=== PATIENT | male | born 1985 | race Caucasian/White ===

== ENCOUNTER 2021-11-30 20:45 | Emergency (ER) | payer BC, SELFPAY ==
[2021-11-30 20:58] VITALS: BP 146/89; PULSE 95; RESP 18; TEMP 36.6; O2SAT 100; BMI 31.9
--- NOTE | 2021-11-30 22:19 | CRLHL7_ITS ---
For Patients: As a result of the Century Cures Act, medical imaging exams and procedure reports are released immediately into your electronic medical record. You may view this report before your referring provider. If you have questions, please contact your health care provider. INDICATION: Chest pain TECHNIQUE: Chest radiograph 1 view COMPARISON: None FINDINGS: The sensitivity and specificity of the exam are moderately limited by the patient`s body habitus. Mediastinum: The mediastinum is normal in appearance. The heart silhouette is normal in size and morphology. Lung: Both lungs are unremarkable in appearance with small lung volumes. No sign of pleural effusion seen. No pneumothorax is identified. Bone and Soft tissue: Unremarkable for age. IMPRESSION: 1. No acute cardiopulmonary disease is seen. Dictated by: Ramy Celis MD @ 11/30/2021 23:06:02 (Electronically Signed)
[2021-11-30 22:44] LABS: Chloride* 103 mmol/L (96-114)
[2021-11-30 22:45] LABS: Albumin* 4.3 g/dL (3.3-5.0); Potassium* 3.7 mmol/L (3.6-5.1); Sodium* 134 mmol/L (135-149)
[2021-11-30 22:46] LABS: Appearance Urine Clear (Clear); Bilirubin Urine Negative (Negative); Blood Urine Trace-intact (Negative); Color Urine Yellow (Yellow); Glucose Urine Negative (Negative); Ketones Urine Negative (Negative); Leukocyte Esterase Urine Negative (Negative); Nitrite Urine Negative (Negative); Protein Urine Trace (Negative)
[2021-11-30 22:47] LABS: Bilirubin Total* 0.7 mg/dL (0.1-1.5); Creatinine* 0.9 mg/dL (0.5-1.5); Est. Creatinine Clearance* 109.78; Estimated Glomerular Filt Rate 114 ml/min
[2021-11-30 22:48] LABS: Alanine Aminotransferase* 41 U/L (4-50); Alkaline Phosphatase* 101 U/L (40-150); Aspartate Amino Transferase* 42 U/L (12-35); Blood Urea Nitrogen* 17 mg/dL (5-24); Calcium* 8.8 mg/dL (8.4-10.6); Carbon Dioxide* 23 mmol/L (20-32); Glucose* 117 mg/dL (60-115); Total Protein* 7.6 g/dL (6.0-8.3)
[2021-11-30] MEDS: ASPIRIN 81 MG TAB.CHEW 324 MG PO (22:49)
[2021-11-30 22:50] LABS: D Dimer Quantitative* < 0.27 ug/ml (0.00-0.50)
[2021-11-30] MEDS: 0.9 % SODIUM CHLORIDE 1000 ml 1,000 ML IV (22:50)
[2021-11-30 22:54] LABS: Bacteria Urine Few; Mucus Urine Moderate; RBC Urine 0-2 (0-2); Squamous Epithelial Cell Urine Few (None-Few); WBC Urine 0-2 (0-5)
[2021-11-30 22:57] LABS: Basophils Absolute Auto 0.03 K/uL (0.00-0.30); Basophils Percent Auto 0.4 % (0.0-3.0); Eosinophils Absolute Auto 0.24 K/uL (0.00-0.50); Eosinophils Percent Auto 3.1 % (0.0-7.0); Hematocrit 42.2 % (37.0-53.0); Hemoglobin* 14.8 gm/dL (13.5-17.5); Immature Granulocytes Abs Auto 0.05 K/uL (0.00-0.30); Lymphocytes Absolute Auto 2.22 K/uL (0.90-2.90); Lymphocytes Percent Auto 29.1 % (20-44); Mean Corpuscular HGB Conc 35 gm/dL (32-36); Mean Corpuscular Hemoglobin 32 pg (26-34); Mean Corpuscular Volume 90 fL (80-100); Monocytes Percent Auto 8.5 % (0.0-11.0); Neutrophils Absolute Auto 4.45 K/uL (1.7-7.0); Neutrophils Percent Auto 58.2 % (42.0-72.0); Platelet Count* 209 K/uL (140-440); RDW Coefficient of Variation % 12.4 % (11.5-15.5); Red Blood Count 4.69 m/uL (4.30-5.90); White Blood Count* 7.64 K/uL (4.50-11.00)
[2021-11-30 22:58] LABS: Slide Review Reflex No
[2021-11-30 23:03] LABS: Troponin I* < 0.01 ng/mL (0.01-0.04)
[2021-11-30 23:30] VITALS: BP 136/78; PULSE 89; RESP 18; TEMP 36.6; O2SAT 100
--- NOTE | 2021-11-30 23:50 | ED_ITS ---
HPI - Chest Pain General Date Seen: 11/30/21 Chief Complaint: Chest Pain Stated Complaint: Chest pain Time Seen by Provider: 11/30/21 22:09 History of Present Illness HPI narrative: Tal is a very pleasant 36-year-old gentleman otherwise healthy who comes to the emergency room for evaluation of chest pain. Patient notes that this past weekend he awoke at 0300 hours covered in sweat with a heart rate of 145. He was not able to get back to sleep for quite some time. When he got up that morning he was still sweating and had a heart rate of 129. Really had no chest pain at that time and was not short of breath. This lasted for hours and then went away. He was seen at urgent care at which time he was told his EKG was normal. He was told to follow-up. Tonight he noted onset of rapid heart rate again but this time it was associated with chest pain he shows this to be substernal area and radiated into his back. He went to urgent care he was told it was possibly anxiety. He notes that since his arrival here he has had no rapid heart rate any feels well. Notes that he does have a stressful job but has not had problems with panic attacks in the past. He notes that there is really no skipped beats just too many beats. He does agree it was harder to breathe he has not had cough cold congestion Related Data Home Medications Medication Instructions Recorded Confirmed No Known Home Medications 11/30/21 11/30/21 Allergies Allergy/AdvReac Type Severity Reaction Status Date / Time No Known Drug Allergies Allergy Verified 11/30/21 21:01 Review of Systems Status of ROS Reports: 10 or more systems reviewed and unremarkable except as noted in History and below Narrative Patient denies fever, chills. He does snore. He has not had a sleep study. He does not use a CPAP. Denies cough. Denies nausea vomiting abdominal pain. Denies numbness around his mouth but does note occasional tingling in his hands and feet. [facility] Medical History (Updated 12/01/21 @ 00:51 by Fouzia Franklin MD) No significant past medical history Surgical History (Updated 11/30/21 @ 22:10 by Ephraim Telles RN) No significant past surgical history Social History Smoking Status: Never smoker Do you use any of these nicotine containing products: None How often do you have a drink containing alcohol: never How often do you have six or more drinks on one occasion: Never AUDIT-C Alcohol total score: 0 Non-prescribed substance use: denies use Exam Const Vital Signs, click to edit/add: Vital Signs - 24 hr 11/30/21 20:58 11/30/21 23:30 12/01/21 00:10 Temperature 97.8 F 97.8 F 97.8 F Pulse Rate [Right Pulse Oximeter] 95 89 78 Respiratory Rate 18 18 18 Blood Pressure [Right Upper Arm] 146/89 H 136/78 125/70 Pulse Oximetry 100 100 100 Course Vital Signs Vital signs: Initial Vital Signs Temperature 97.8 F 11/30/21 20:58 Temperature Source Temporal Artery Scan 11/30/21 20:58 Pulse Rate 95 11/30/21 20:58 Respiratory Rate 18 11/30/21 20:58 Blood Pressure 146/89 H 11/30/21 20:58 Blood Pressure Mean 108 11/30/21 20:58 Blood Pressure Position Sitting 11/30/21 20:58 Pulse Oximetry 100 11/30/21 20:58 Oxygen Delivery Method 11/30/21 20:58 Vital Signs Temperature 97.8 F 11/30/21 20:58 Pulse Rate 95 11/30/21 20:58 Respiratory Rate 18 11/30/21 20:58 Blood Pressure 146/89 H 11/30/21 20:58 Pulse Oximetry 100 11/30/21 20:58 Temperature 97.8 F 12/01/21 00:10 Pulse Rate 78 12/01/21 00:10 Respiratory Rate 18 12/01/21 00:10 Blood Pressure 125/70 12/01/21 00:10 Pulse Oximetry 100 12/01/21 00:10 MDM - Chest Pain MDM Narrative Medical decision making narrative: 1. Atypical chest pain-at this time patient's laboratory values including a white count, hemoglobin, electrolyte panel, troponin are all reassuring. Two EKGs and 2 troponins reassuring. Patient may need outpatient Holter and or stress test. 2. Likely sleep apnea-establish with primary to be set up for sleep study 3. Disposition-home, return as needed for worsening symptoms. Lab Data Attestation: I reviewed the patient's lab results. Labs: Lab Results 07/26/22 07/26/22 07/26/22 Range/Units 22:30 22:30 22:30 WBC 7.64 (4.50-11.00) K/uL RBC 4.69 (4.30-5.90) m/uL Hgb 14.8 (13.5-17.5) gm/dL Hct 42.2 (37.0-53.0) % MCV 90 (80-100) fL MCH 32 (26-34) pg MCHC 35 (32-36) gm/dL RDW Coeff of Scottie 12.4 (11.5-15.5) % Plt Count 209 (140-440) K/uL Neut % (Auto) 58.2 (42.0-72.0) % Lymph % (Auto) 29.1 (20-44) % [place] % (Auto) 8.5 (0.0-11.0) % Eos % (Auto) 3.1 (0.0-7.0) % Baso % (Auto) 0.4 (0.0-3.0) % Neut # (Auto) 4.45 (1.7-7.0) K/uL Lymph # (Auto) 2.22 (0.90-2.90) K/uL [place] # (Auto) 0.60 (0.00-0.90) K/UL Eos # (Auto) 0.24 (0.00-0.50) K/uL Baso # (Auto) 0.03 (0.00-0.30) K/uL Abs Immat Gran (auto) 0.05 (0.00-0.30) K/uL D-Dimer Quant (PE/DVT) < 0.27 (0.00-0.50) ug/ml Sodium 134 L (135-149) mmol/L Potassium 3.7 (3.6-5.1) mmol/L Chloride 103 (96-114) mmol/L Carbon Dioxide 23 (20-32) mmol/L BUN 17 (5-24) mg/dL Creatinine 0.9 (0.5-1.5) mg/dL Estimated Creat Clear 109.78 Estimated GFR 114 ml/min Glucose 117 H (60-115) mg/dL Calcium 8.8 (8.4-10.6) mg/dL Total Bilirubin 0.7 (0.1-1.5) mg/dL AST 42 H (12-35) U/L ALT 41 (4-50) U/L Alkaline Phosphatase 101 (40-150) U/L Troponin I < 0.01 L (0.01-0.04) ng/mL Total Protein 7.6 (6.0-8.3) g/dL Albumin 4.3 (3.3-5.0) g/dL Urine Color (Yellow) Urine Appearance (Clear) Urine pH (5.0-8.5) Ur Specific [place] (1.000-1.030) Urine Protein (Negative) Urine Glucose (UA) (Negative) Urine Ketones (Negative) Urine Blood (Negative) Urine Nitrite (Negative) Urine Bilirubin (Negative) Urine Urobilinogen (0.2-1.0) Ur Leukocyte Esterase (Negative) Urine RBC (0-2) Urine WBC (0-5) Ur Squamous Epith Cells (None-Few) Urine Bacteria (None) Urine Mucus (None) POC Troponin I (0.01-0.04) ng/ml 11/30/21 11/30/21 12/01/21 Range/Units 22:30 22:40 00:25 WBC (4.50-11.00) K/uL RBC (4.30-5.90) m/uL Hgb (13.5-17.5) gm/dL Hct (37.0-53.0) % MCV (80-100) fL MCH (26-34) pg MCHC (32-36) gm/dL RDW Coeff of Scottie (11.5-15.5) % Plt Count (140-440) K/uL Neut % (Auto) (42.0-72.0) % Lymph % (Auto) (20-44) % [place] % (Auto) (0.0-11.0) % Eos % (Auto) (0.0-7.0) % Baso % (Auto) (0.0-3.0) % Neut # (Auto) (1.7-7.0) K/uL Lymph # (Auto) (0.90-2.90) K/uL [place] # (Auto) (0.00-0.90) K/UL Eos # (Auto) (0.00-0.50) K/uL Baso # (Auto) (0.00-0.30) K/uL Abs Immat Gran (auto) (0.00-0.30) K/uL D-Dimer Quant (PE/DVT) (0.00-0.50) ug/ml Sodium (135-149) mmol/L Potassium (3.6-5.1) mmol/L Chloride (96-114) mmol/L Carbon Dioxide (20-32) mmol/L BUN (5-24) mg/dL Creatinine (0.5-1.5) mg/dL Estimated Creat Clear Estimated GFR ml/min Glucose (60-115) mg/dL Calcium (8.4-10.6) mg/dL Total Bilirubin (0.1-1.5) mg/dL AST (12-35) U/L ALT (4-50) U/L Alkaline Phosphatase (40-150) U/L Troponin I < 0.01 L (0.01-0.04) ng/mL Total Protein (6.0-8.3) g/dL Albumin (3.3-5.0) g/dL Urine Color Yellow (Yellow) Urine Appearance Clear (Clear) Urine pH 7.0 (5.0-8.5) Ur Specific [place] 1.020 (1.000-1.030) Urine Protein Trace A (Negative) Urine Glucose (UA) Negative (Negative) Urine Ketones Negative (Negative) Urine Blood Trace-intact A (Negative) Urine Nitrite Negative (Negative) Urine Bilirubin Negative (Negative) Urine Urobilinogen 1.0 (0.2-1.0) Ur Leukocyte Esterase Negative (Negative) Urine RBC 0-2 (0-2) Urine WBC 0-2 (0-5) Ur Squamous Epith Cells Few (None-Few) Urine Bacteria Few A (None) Urine Mucus Moderate A (None) POC Troponin I 0.00 L (0.01-0.04) ng/ml 12/01/21 Range/Units 00:30 WBC (4.50-11.00) K/uL RBC (4.30-5.90) m/uL Hgb (13.5-17.5) gm/dL Hct (37.0-53.0) % MCV (80-100) fL MCH (26-34) pg MCHC (32-36) gm/dL RDW Coeff of Scottie (11.5-15.5) % Plt Count (140-440) K/uL Neut % (Auto) (42.0-72.0) % Lymph % (Auto) (20-44) % [place] % (Auto) (0.0-11.0) % Eos % (Auto) (0.0-7.0) % Baso % (Auto) (0.0-3.0) % Neut # (Auto) (1.7-7.0) K/uL Lymph # (Auto) (0.90-2.90) K/uL [place] # (Auto) (0.00-0.90) K/UL Eos # (Auto) (0.00-0.50) K/uL Baso # (Auto) (0.00-0.30) K/uL Abs Immat Gran (auto) (0.00-0.30) K/uL D-Dimer Quant (PE/DVT) (0.00-0.50) ug/ml Sodium (135-149) mmol/L Potassium (3.6-5.1) mmol/L Chloride (96-114) mmol/L Carbon Dioxide (20-32) mmol/L BUN (5-24) mg/dL Creatinine (0.5-1.5) mg/dL Estimated Creat Clear Estimated GFR ml/min Glucose (60-115) mg/dL Calcium (8.4-10.6) mg/dL Total Bilirubin (0.1-1.5) mg/dL AST (12-35) U/L ALT (4-50) U/L Alkaline Phosphatase (40-150) U/L Troponin I (0.01-0.04) ng/mL Total Protein (6.0-8.3) g/dL Albumin (3.3-5.0) g/dL Urine Color (Yellow) Urine Appearance (Clear) Urine pH (5.0-8.5) Ur Specific [place] (1.000-1.030) Urine Protein (Negative) Urine Glucose (UA) (Negative) Urine Ketones (Negative) Urine Blood (Negative) Urine Nitrite (Negative) Urine Bilirubin (Negative) Urine Urobilinogen (0.2-1.0) Ur Leukocyte Esterase (Negative) Urine RBC (0-2) Urine WBC (0-5) Ur Squamous Epith Cells (None-Few) Urine Bacteria (None) Urine Mucus (None) POC Troponin I 0.00 L (0.01-0.04) ng/ml Imaging Data Chest x-ray: Attestation: I have reviewed the pertinent imaging results. My impression: No acute findings Radiologist's impression: No acute findings ECG Data Attestation: I personally reviewed and interpreted this ECG as follows: ECG interpretation date: 12/01/21 Interpretation: EKG 1. Sinus rhythm at a rate of 86. No acute ST or T-wave changes are noted. EKG 2.-normal sinus rhythm at a rate of 80. No acute ST or T-wave changes are noted. Discharge Plan Discharge Clinical Impression: Atypical chest pain Patient Disposition: Home, Self-Care Condition: Improved Additional Instructions: Suggest outpatient follow-up with primary MD. You may need Holter monitor if you experience racing heart again. Would also recommend evaluation for possible stress test. Push fluids. It is very important that she also follow up for an outpatient sleep study with your history of snoring. Return to the emergency room for recurrence of symptoms especially chest pain and racing heart. Prescriptions: No Action No Known Home Medications 0RF Follow Up/Referrals: Provider,Not a Local [Primary Care Provider] - Stand Alone Forms: K[employer] Medical Info Instructions
[2021-12-01 00:10] VITALS: BP 125/70; PULSE 78; RESP 18; TEMP 36.6; O2SAT 100
[2021-12-01 00:58] LABS: Troponin I* < 0.01 ng/mL (0.01-0.04)
[2021-12-01 01:17] LABS: PCR FLU A Negative PCR FLU A (Negative); PCR FLU B Negative PCR FLU B (Negative)
[2021-12-01 01:21] VITALS: BP 145/85; PULSE 74; RESP 18; TEMP 36.6; O2SAT 100
[2021-12-01 01:22] VITALS: BP 145/85; PULSE 70; RESP 18; TEMP 36.6
[2021-12-01 01:24] LABS: SARS PCR* Negative SARS-CoV-2 (Negative)
== END 2021-12-01 01:22 | disposition home or self-care (01) ==
PROVIDERS: Emergency Provider Family Medicine
DX: R07.9 Chest pain, unspecified (principal)
CPT/HCPCS: 36415; 71045; 80053; 81003; 81015; 84484; 85025; 85379; 87086; 87502; 87635; 93005; 99284; 99285; A9270; J7030

== ENCOUNTER 2021-12-03 08:28 | Outpatient (CLI) | payer BC, SELFPAY ==
[2021-12-03 12:19] LABS: Cholesterol* 250 mg/dL (90-199)
[2021-12-03 12:20] LABS: HDL Cholesterol* 42 mg/dL (>=40); LDL Cholesterol Calculated 162 mg/dL (<100); Triglycerides* 230 mg/dL (40-149)
== END 2021-12-03 08:29 | disposition home or self-care (01) ==
PROVIDERS: Visit Provider Family Medicine
DX: Z00.00 Encounter for general adult medical examination without abnormal findings (principal); I47.1 Supraventricular tachycardia; R07.89 Other chest pain; R06.83 Snoring; R03.0 Elevated blood-pressure reading, without diagnosis of hypertension
CPT/HCPCS: 80061; 84443

== ENCOUNTER 2021-12-09 10:32 | Outpatient (CLI) | payer BC, SELFPAY ==
[2021-12-09 11:46] VITALS: BP 146/82; PULSE 102
--- NOTE | 2021-12-09 12:35 | P.STN_ITS ---
Stress Test Note Date Time Seen by Provider: 11:10 Date Seen: 12/09/21 Date of test: 12/09/21 Providers Referring provider: Rui Funes Primary care provider: Rui Funes Stress test physician: Jeni Mejia Stress Test Note Stress test ordered: Exercise Stress Test Indication for test: Tachycardia and chest pain. Stress test history reviewed Stress test medicine: None Results discussion: Resting EKG: Sinus rhythm, 71 beats per minute. Resting blood pressure: 136/89 Stress test: Patient exercised on the treadmill following standard Papito protocol. Patient exercised to 10 minutes 2 seconds. Exercise was terminated d ue to reaching appropriate heart rate and patient experiencing exercise fatigue. He achieved 11.7 Mets. He had a maximum heart rate of 169 beats per minute which was 108% of his calculated target heart rate 156. Note calculated maximal heart rate was 184. There are was no arrhythmia noted, no ischemic change noted. He did have a mild hyper 2 response to exercise but showed excellent heart rate recovery. Impression: Subjectively negative, objectively negative treadmill stress test. Follow up suggested: Did discuss hypertension briefly. Reviewed with patient that he should follow up with his primary care provider and follow his blood pressure closer. It was found that his blood pressure is more elevated than recommended, discussed lifestyle modification. Reviewed weight loss, exercise, low-sodium diet. He can discuss this further with his primary care provider. He is discharged from here in stable condition end of dictation
== END 2021-12-09 10:33 | disposition home or self-care (01) ==
LOC: STRESS 10:33
PROVIDERS: PCP Family Medicine; Visit Provider Family Medicine
DX: R07.89 Other chest pain (principal); R00.0 Tachycardia, unspecified; I10 Essential (primary) hypertension
CPT/HCPCS: 93016; 93017

== ENCOUNTER 2021-12-17 09:45 | Outpatient (CLI) | payer BC, SELFPAY | END 2021-12-17 09:46 | disposition home or self-care (01) | LOC: RAD 09:46 | PROVIDERS: PCP Family Medicine; Visit Provider Family Medicine | DX: I47.1 Supraventricular tachycardia (principal); R07.89 Other chest pain; I35.1 Nonrheumatic aortic (valve) insufficiency | CPT/HCPCS: 93306 ==

== ENCOUNTER 2021-12-27 19:29 | Outpatient (CLI) | payer BC, SELFPAY ==
--- NOTE | 2022-01-11 12:17 | W.PM.SLEEP ---
Sleep Study Details Details Interpreting Provider: Eddie Reynolds MD Date of Sleep Study: 01/28/22 Sleep Study Details: STUDY TYPE:? Home ? BMI:? 33.9 ORDERING PROVIDER:? Shantel INDICATION:? Concerns about sleep apnea ? SLEEP SUMMARY:? Monitor 357.5 minutes RESPIRATORY SUMMARY:? AHI 5, supine AHI 11.6, left lateral HI 3.1, right lateral AHI 1.8. Lowest oxygen 90%. No snoring PERIODIC LIMB MOVEMENTS OF SLEEP:? Not recorded CARDIAC:? 57-111, mean 71.5 beats per minute IMPRESSION:? Mild obstructive sleep apnea RECOMMENDATION: Depending on patient's symptoms treatment could consist of positional therapy, CPAP AutoSet 4-17, dental appliance. Weight loss and/or airway expansion surgery may also be options.
== END 2021-12-27 19:30 | disposition home or self-care (01) ==
LOC: SLEEP 19:31
PROVIDERS: PCP Family Medicine; Visit Provider Family Medicine
DX: G47.33 Obstructive sleep apnea (adult) (pediatric) (principal)
CPT/HCPCS: 95806

== ENCOUNTER 2022-01-24 07:50 | Outpatient (CLI) | payer BC, SELFPAY ==
--- OUTSIDE RECORDS SUMMARY | 2022-01-24 07:51 | XMS_ITS | Clinical Summary ---
:1985 Author Organization [employer] [facility] [place] [address] Care Team Providers Name Role Phone Clinic, No Pcp Or Primary Care Provider Unavailable Allergies No known active allergies Medications Medication Sig Dispensed Refills Start Date End Date Status ibuprofen (ADVIL; 2 times 0 04/07/2021 A ctive MOTRIN) 600 mg daily if tablet needed. rosuvastatin Take 10 mg 0 12/07/2021 Activ e (CRESTOR) 10 mg by mouth tablet once daily. metoprolol Take 25 mg 0 12/03/2021 01/14/2022 Discon tinued succinate (TOPROL by mouth (* Med XL) 25 mg once daily. complete /Regimen Sustained-Release co mplete/Level of tablet care nelson e) Active Problems Not on file Encounters Date Type Specialty Care Team Description 01/19/2022 Telephone Avery Swenson MD Testing 01/17/2022 Telephone Avery Swenson MD Cardiov ascular Diagnostic Testing (Cta ch est) 01/14/2022 Office Visit Avery Swenson MD Follow Up 12/17/2021 Orders Only <No scans attac hed> from Last 3 Months Social History Tobacco Use Types Packs/Day Years Used Date Never Smoker Smokeless Tobacco: Never Used Sex Assigned at Date Recorded Not on file Obstetrics History Last Filed Vital Signs Vital Sign Reading Time Taken Comments Blood Pressure 130/94 01/14/2022 10:02 AM CDT Pulse 89 01/14/2022 10:02 AM CDT Temperature 36.9 ??C (98.5 ??F) 11/17/2019 9:03 PM CDT Respiratory Rate 14 01/14/2022 10:02 AM CDT Oxygen Saturation 98% 11/17/2019 9:03 PM CDT Inhaled Oxygen Concentration - - Weight 94.3 kg (208 lb) 01/14/2022 10:02 AM CDT Height 175.3 cm (5' 9) 11/17/2019 9:03 PM CDT Body Mass Index 30.72 11/17/2019 9:03 PM CDT Plan of Treatment Health Maintenance Due Date Last Done Comments Tdap 1996 Depression screening for age 12+ 1997 BMI (ht and wt on same day) for age 18+ 2003 Hepatitis C screening for age 18-79 2003 Tetanus booster 2005 Lipids for age 35-44 2020 COVID-19 vaccine series (3 - Booster for 02/10/2021 021, 08/07/2020 Moderna series) Influenza for age 9-49 01/06/2022 Procedures Procedure Name Priority Date/Time Associated Diagnosis Comme nts ECHO COMPLETE WO Routine 12/17/2021 10:17 AM SVT Resu lts for this CONTRAST CDT (supraventricular procedure are in tachycardia) (HC) the result s section. from Last 3 Months Results ECHO COMPLETE WO CONTRAST (12/17/2021 10:17 AM CDT) P athologist Signature AORTIC VALVE 7 mmHg MEAN PG EJECTION 71 % FRACTION LVEDD 4.8 cm EJECTION 60 - 65% FRACTION Anatomical Region Laterality Modality HEART Ultrasound Specimen (Source) Anatomical Collection Method Collection Time Re ceived Time Location / / Volume Laterality 12/17/2021 9:58 AM CDT Narrative 12/17/2021 11:59 AM CDT ECHOCARDIOGRAM MAURO RICH ?Acces jose d#: ?? [id number] : ?1985 36 years Study Date : ?? 12/17/2021 9:58:41 AM Gender: M ? BP: ? 130/68 mmHg Height: 175.00 cm ? BSA: ?2.10 m? ?? Weight: 95.00 kg ?Tech: ? NWA ?Referring MD: ARIANE FUNES [facility] Reading Location: [facility] Procedure: 2D, Color Doppler and Spectra l Doppler. Indication for study: SVT Cardiac Rhythm: Regular.Study quality: F air. Final Impressions: 1. Normal LV size, normal wall thicknes s, normal global systolic function with an estimated EF of 60 - 65%. 2. Right ventricular cavity size is nor mal, global systolic RV function is normal. 3. The aortic valve is bicuspid, no mc nosis and mild regurgitation. 4. The ascending aorta is dilated with a maximal diameter of 4.8 cm. 5. The aortic sinus is dilated with a m aximal diameter of 4.4 cm. COMMENTS: consider cardiac MR to evaluat e size of ascending aorta. Chamber Sizes and Function Normal left ventricular size, normal wal l thickness, normal global systolic function with an estimated EF of 60 - 65%. Left atrial size is normal. Right ventricular cavity size is normal, global systoli c RV function is normal. The right atriu m is normal. Right atrial volume index is 16 ml/m? ??. Right atrial area is 15 cm? ??. The pulmonary artery is not well visualized. The sinus of Valsalva is dil ated. The ascending aorta is dilated. Valves, RV Pressures and Diastolic Funct ion The aortic valve is bicuspid, no stenosi s and mild regurgitation. The mitral valve is normal in structure, trace mitral regurgitation. Normal diastolic function. The tricuspid valve is normal in structu re. Tricuspid regurgitation is trace reg urgitation. The pulmonic valve is normal. Trace pulmonary regurgitation. Masses, Effusion, Shunts There is no pericardial effusion. The in ferior vena cava is normal sized, respiratory size variation greater than 50%. No left to right shunting was detected by limited color flow Doppler interrogation of the interatrial septum. MEASUREMENTS AND CALCULATIONS 2-D Measurements and LV Function: LVID (d) 4.8 cm LV FS% (2D) ?? 44 % LVID (s) 2.7 cm LVOT diameter 2.0 cm IVS (d) ??1.2 cm HR ?84 bpm LVPW (d) 1.2 cm LA Vol index ??19 ml/m2 Ao Sinus 4.4 cm RA Vol index ??16 ml/m2 Asc Ao ?? 4.8 cm RA area ? 15 cm? ?? LA ? 3.2 cm RV Max 4C (d) 3.0 cm Diastology: Mitral ?Tissue Doppler ?Pulmonary veins E Peak 1.2 m/s ??e', Septum ? 0.12 m /s Pulm s ?58.7 cm/s A Peak 0.6 m/s ??e', Lateral ?0.10 m /s Pulm d ?61.2 cm/s E/A ?1.9 ?E/e' Average ?? 10. 18 ?Pulm s/d ratio ??0.96 DT ? 243 msec IVRT ?? 77 msec Aortic Valve: Vmax ? 1.8 m/s ??LETA (V) ?? 1.86 cm? AI P 1/2 268 msec VTI ?0.38 m ?? LETA (I) ?? 1.85 cm? ?? LVOT V max 1.0 m/s ??Max PG ?13 mmHg LVOT VTI ?? 0.22 m ?? Mean PG ?? 7 mmHg SV ? 71 ml ?Dim Index 0.57 SV index ?? 34 ml/m? ?? CO ?6.0 l/min ?CI ?2.8 l/min/m? ?? Mitral Valve: MVA ?3.1 cm? ?? MV P 05/09 70 msec Tricuspid Valve and estimated PA pressur es: TAPSE 2.1 cm Pulmonic Valve: PV Vmax 1.1 m/s . This study was interpreted by an [facility] facility. CC: [facility]. ??Final ?? Procedure Note Avery Salinas MD - 12/17/2021 ECHOCARDIOGRAM MAURO RICH : 1985 36 years Study Date: 12/06 9:58:41 AM Gender: M BP: 130/68 mmHg Height: 175.00 cm BSA: 2.10 m? ?? Weight: 95.00 kg Tech: CARLTON Referring MD: ARIANE FUNES Site: [facility] Reading Location: [facility] Procedure: 2D, Color Doppler and Spectra l Doppler. Indication for study: SVT Cardiac Rhythm: Regular.Study quality: F air. Final Impressions: 1. Normal LV size, normal wall thicknes s, normal global systolic function with an estimated EF of 60 - 65%. 2. Right ventricular cavity size is nor mal, global systolic RV function is normal. 3. The aortic valve is bicuspid, no mc nosis and mild regurgitation. 4. The ascending aorta is dilated with a maximal diameter of 4.8 cm. 5. The aortic sinus is dilated with a m aximal diameter of 4.4 cm. COMMENTS: consider cardiac MR to evaluat e size of ascending aorta. Chamber Sizes and Function Normal left ventricular size, normal wal l thickness, normal global systolic function with an estimated EF of 60 - 65%. Left atrial size is normal. Right ventricular cavity size is normal, global systolic RV function is normal. The right atrium is normal. Right atrial volume index is 16 ml/m? ??. Right atrial area is 15 cm? ??. The pulmonary artery is not well visualized. The sinus of Valsalva is dilated. The ascending aorta is dilated. Valves, RV Pressures and Diastolic Funct ion The aortic valve is bicuspid, no stenosi s and mild regurgitation. The mitral valve is normal in structure, trace mitral regurgitation. Normal diastolic function. The tricuspid valve is normal in structure. Tricuspid regurgitation is trace regurgitation. Th e pulmonic valve is normal. Trace pulmonary regurgitation. Masses, Effusion, Shunts There is no pericardial effusion. The in ferior vena cava is normal sized, respiratory size variation greater than 50%. No left to right shunting was detected by limited color flow Doppler interrogation of the interatrial septum. MEASUREMENTS AND CALCULATIONS 2-D Measurements and LV Function: LVID (d) 4.8 cm LV FS% (2D) 44 % LVID (s) 2.7 cm LVOT diameter 2.0 cm IVS (d) 1.2 cm HR 84 bpm LVPW (d) 1.2 cm LA Vol index 19 ml/m2 Ao Sinus 4.4 cm RA Vol index 16 ml/m2 Asc Ao 4.8 cm RA area 15 cm? ?? LA 3.2 cm RV Max 4C (d) 3.0 cm Diastology: Mitral Tissue Doppler Pulmonary veins E Peak 1.2 m/s e', Septum 0.12 m/s Pulm s 58.7 cm/s A Peak 0.6 m/s e', Lateral 0.10 m/s Pulm d 61.2 cm/s E/A 1.9 E/e' Average 10.18 Pulm s/d rati o 0.96 DT 243 msec IVRT 77 msec Aortic Valve: Vmax 1.8 m/s LETA (V) 1.86 cm? ?? AI P 1/2 268 msec VTI 0.38 m LETA (I) 1.85 cm? ?? LVOT V max 1.0 m/s Max PG 13 mmHg LVOT VTI 0.22 m Mean PG 7 mmHg SV 71 ml Dim Index 0.57 SV index 34 ml/m? ?? CO 6.0 l/min CI 2.8 l/min/m? ?? Mitral Valve: MVA 3.1 cm? ?? MV P 1/2 70 msec Tricuspid Valve and estimated PA pressur es: TAPSE 2.1 cm Pulmonic Valve: PV Vmax 1.1 m/s . This study was interpreted by an [facility]. CC: [facility]. Final Ariane Funes MD ECHO ORD from Last 3 Months Insurance Payer Benefit Plan / Subscriber ID Effective Dates Phone Addre ss Type Group BLUE CROSS BLUE CROSS OF [id number] 2021-Present [address] [address] [place] [address] Avis Rich Personal/Family Self 1985 [address] (Home) [place] [address] Care Teams Nuclear Security Officer Relationship Specialty Start Date End Date Clinic, No Pcp Or PCP - General 11/17/19 .
--- NOTE | 2022-01-24 08:00 | CRLHL7_ITS ---
For Patients: As a result of the Century Cures Act, medical imaging exams and procedure reports are released immediately into your electronic medical record. You may view this report before your referring provider. If you have questions, please contact your health care provider. INDICATION: BICUSPID AORTIC VALVE COMPARISON: none TECHNIQUE: CT volumetric acquisition was performed of the thorax during intravenous infusion of 95 cc Isovue 370 nonionic intravenous contrast. Please note that all CT scans at this facility use dose modulation, iterative reconstruction, and/or weight-based dosing when appropriate to reduce radiation dose to as low as reasonably achievable. FINDINGS: Bicuspid aortic valve. Ascending aorta measures 4.4 x 4.5 cm. No dissection. Normal pulmonary artery. Pulmonary veins normal. Thoracic inlet unremarkable. Normal visualized thyroid. No mediastinal, hilar or axillary adenopathy. Densities within the kidneys appear to represent normal excretion of contrast into the collecting systems. Normal pancreas, gallbladder, spleen and liver. No upper abdominal adenopathy or bowel pathology. Lungs are clear. No edema, infiltrate, pneumothorax or effusion. No pulmonary nodule. IMPRESSION: Bicuspid aortic valve with the ascending aorta measuring 4.4 x 4.5 cm. Please note that all CT scans at this facility use dose modulation, iterative reconstruction, and/or weight-based dosing when appropriate to reduce radiation dose to as low as reasonably achievable. Dictated by Avery Salcedo MD @ 01/24/2022 9:06:11 AM (Electronically Signed)
== END 2022-01-24 07:51 | disposition home or self-care (01) ==
LOC: CT 07:50
PROVIDERS: PCP Family Medicine; Visit Provider Internal Medicine Cardiovascular Disease
DX: Q23.1 Congenital insufficiency of aortic valve (principal)
CPT/HCPCS: 71260; Q9967

== ENCOUNTER 2023-05-19 09:28 | Outpatient (CLI) | payer BC, SELFPAY ==
--- OUTSIDE RECORDS SUMMARY | 2023-05-25 15:58 | XMS_ITS | Clinical Summary ---
Author Name Unknown Organization [facility] Address [place], [place] [address] Care Team Providers Care Vp Treasurer Name Role Phone Clinic, No Pcp Or Primary Care Provider Unavaila ble Allergies No known active allergies Medications Medication Sig Dispensed Refills Start Date End Date Status ibuprofen (ADVIL; MOTRIN) 600 mg tablet 2 times daily if needed. 0 04/07/2021 Active rosuvastatin (CRESTOR) 10 mg tablet Take 10 mg by mouth once daily. 0 12/07/2021 Active Social History Tobacco Use Types Packs/Day Years Used Date Smoking Tobacco: Never Smokeless Tobacco: Never Social Connections Answer Date Recorded Frequency of Communication with Friends and Fami ly Not on file 01/14/2022 Sex and Gender Information Value Date Recorded Sex Assigned at Not on file Gender Identity Not on file Sexual Orientation Not on file Obstetrics History Last Filed Vital Signs Vital Sign Reading Time Taken Comments Blood Pressure 130/94 01/14/2022 10:02 AM CDT Pulse 89 01/14/2022 10:02 AM CDT Temperature 36.9 ??C (98.5 ??F) 11/17/2019 9:03 PM CD T Respiratory Rate 14 01/14/2022 10:02 AM CDT Oxygen Saturation 98% 11/17/2019 9:03 PM CDT Inhaled Oxygen Concentration - - Weight 94.3 kg (208 lb) 01/14/2022 10:02 AM CDT Height 175.3 cm (5' 9) 11/17/2019 9:03 PM CDT Body Mass Index 30.72 11/17/2019 9:03 PM CDT Plan of Treatment Health Maintenance Due Date Last Done Comments Tdap 1996 Depression screening for age 12+ 1997 HIV for age 15-65 2000 BMI (ht and wt on same day) for age 18+ 2003 Hepatitis C screening for ag e 18-79 2003 Tetanus booster 2005 Lipids for age 35-44 2020 COVID-19 vaccine series (3 - 2022-24 season) 2023 09/10/2020, 08/07/2020 Influenza for age 9-49 01/06/2023 Pneumococcal series for age 6-64 Aged Out No longer eligible b ased on patient's age to complete this topic Care Teams Vp Treasurer Relationship Specialty Start Date End Date Clinic, No Pcp Or . PCP - General 11/17/19
== END 2023-05-19 09:29 | disposition home or self-care (01) ==
LOC: NFLDREF 05-25 15:56
PROVIDERS: PCP Family Medicine; Referring Provider Family Medicine; Visit Provider Family Medicine
DX: Z00.00 Encounter for general adult medical examination without abnormal findings (principal); E78.5 Hyperlipidemia, unspecified; R03.0 Elevated blood-pressure reading, without diagnosis of hypertension; R06.02 Shortness of breath; U07.1 COVID-19; J32.9 Chronic sinusitis, unspecified; J40 Bronchitis, not specified as acute or chronic; B99.9 Unspecified infectious disease
CPT/HCPCS: 80053; 80061

== ENCOUNTER 2024-05-21 16:18 | Outpatient (CLI) | payer SELFPAY ==
[2024-05-21 23:23] LABS: Chlamydia DNA Amplified* NOT DETECTED (No Detected); GC DNA Amplified* NOT DETECTED (No Detected)
== END 2024-05-21 16:19 | disposition home or self-care (01) ==
PROVIDERS: PCP Family Medicine
DX: Z11.3 Encounter for screening for infections with a predominantly sexual mode of transmission (principal)
CPT/HCPCS: 86592; 86703; 86706; 86803; 87340; 87491; 87591